=== PATIENT | female | born 1985 | race American Indian/Alaskan Native ===

== ENCOUNTER 2018-09-25 11:29 | Emergency (ER) | payer MEDICAID ==
[2018-09-25] MEDS ORDERED: CATAPRES PO ONE (12:27)
[2018-09-25] MEDS ORDERED: NORCO 5/325 PO ONE (12:27)
--- NOTE | 2018-09-25 12:32 | Emergency Department Report ---
HPI - General Chief Complaint: High BP Time Seen by Provider: 09/25/18 12:17 - HPI HPI: 33-year-old female presents to the emergency department with a complaint of elevated blood pressure and a right-sided headache. Headache started earlier today. She had her blood pressure checked at work and she says that she had a blood pressure with a systolic of about 190. The patient does have a history of some hypertension since having a baby 9 weeks ago and she had preeclampsia. The patient is on nifedipine 30 mg once daily and says that she took it this morning. She denies any slurred speech, numbness or paresthesias, or any neurological deficits. No recent travel or sick contacts at home. ED Past Medical Hx - Past Medical History Previous Medical History?: Yes Hx Hypertension: Yes - Surgical History Past Surgical History?: Yes Additional Surgical History: c section ila urbano - Social History Smoking Status: Never Smoker Substance Use Type: None - Medications Home Medications: Home Medications Medication Instructions Recorded Confirmed Last Taken Type Nitrofurantoin Monohyd/M-Cryst 100 mg PO BID #14 capsule 12/21/17 Unknown Rx [Macrobid 100 mg Capsule] Acetaminophen 500 mg PO Q6H PRN #20 tablet 01/06/18 Unknown Rx Metoclopramide [Reglan] 10 mg PO TID PRN #20 tab 01/06/18 Unknown Rx 21/Iron Fu/Folic Acid 1 each PO DAILY #30 tablet 01/06/18 Unknown Rx [ Complete Caplet] ED Review of Systems ROS: Stated complaint: HIGH BP/HEADACHE ON R SIDE Other details as noted in HPI Comment: All other systems reviewed and negative Constitutional: denies: fever, weakness Eyes: denies: eye pain, eye discharge ENT: denies: ear pain, throat pain Respiratory: denies: cough, shortness of breath Cardiovascular: denies: chest pain, palpitations Gastrointestinal: denies: abdominal pain, vomiting Musculoskeletal: denies: back pain, arthralgia Neurological: headache. denies: weakness, numbness, paresthesias Physical Exam - Physical Exam Vital Signs: Vital Signs 09/25/18 11:34 Temperature 98.1 F Pulse Rate 57 L Respiratory 16 Rate Blood Pressure 176/108 O2 Sat by Pulse 98 Oximetry Physical Exam: GENERAL: The patient is well-developed well-nourished. HENT: Normocephalic. Atraumatic. Patient has moist mucous membranes. EYES: Extraocular motions are intact. Pupils equal reactive to light bilaterally. No nystagmus. NECK: Supple. Trachea is midline. CHEST/LUNGS: Clear to auscultation. There is no respiratory distress noted. HEART/CARDIOVASCULAR: Regular. There is no tachycardia. There is no murmur. ABDOMEN: There is no abdominal distention. SKIN: Skin is warm and dry. NEURO: The patient is awake, alert, and oriented. The patient is cooperative. The patient has no focal neurologic deficits. The patient has normal speech. Cranial nerves II through XII grossly intact. MUSCULOSKELETAL: There is no tenderness or deformity. There is no evidence of acute injury. ED Course Vital Signs 09/25/18 11:34 Temperature 98.1 F Pulse Rate 57 L Respiratory 16 Rate Blood Pressure 176/108 O2 Sat by Pulse 98 Oximetry ED Medical Decision Making - Radiology Data Radiology results: report reviewed CT of the head does not show any acute intracranial process including no ischemia, shift, mass, bleeding or skull fracture. - Medical Decision Making This patient presents to the emergency department with a complaint of a right- sided headache and elevated blood pressure. Apparently the blood pressure was about 190 systolic at work when it was checked. Her blood pressure upon arrival here is 176/108. She has no focal, motor or sensory deficits in her cranial nerves are intact. CT scan of the head was done that does not show any bleed, shift, mass, ischemia, or any other acute process. She was given a pain pill and a low dose Catapres. Upon reevaluation she is feeling improved and her blood pressures come down to a much a normal level. The patient has remained stable throughout ED course and appears safe for discharge home at this time. We discussed dietary and lifestyle changes to make such as decreased salt and caffeine intake. She will continue with her nifedipine and has been instructed to follow-up with primary care. She will keep a blood pressure log. She will return to the ER with any worsening of her symptoms or any acute distress. - Differential Diagnosis tension headache, migraine, subarachnoid Critical Care Time: No Critical care attestation.: If time is entered above; I have spent that time in minutes in the direct care of this critically ill patient, excluding procedure time. ED Disposition Clinical Impression: Headache Qualifiers: Headache type: unspecified Headache chronicity pattern: unspecified pattern Intractability: not intractable Qualified Code(s): R51 - Headache Hypertension Qualifiers: Hypertension type: essential hypertension Qualified Code(s): I10 - Essential (primary) hypertension Disposition: TO HOME OR SELFCARE Is pt being admited?: No Condition: Stable Instructions: Acute Headache (ED), Hypertension (ED) Additional Instructions: Please follow up with a primary care physician in the next few days. Continue with your blood pressure medications starting tomorrow. Try and stay away from foods that are high in salt and caffeinated products to help with your blood pressure. Keep a blood pressure log. Return to the emergency Department with any worsening of your symptoms or any acute distress. Referrals: SALONI ANN DO [Staff Physician] - 2-3 Days [facility] [Outside] - 2-3 Days Forms: Work/School Release Form(ED) Time of Disposition: 14:52
--- NOTE | 2018-09-25 14:06 | Cat Scan Report ---
CT BRAIN: 09/25/2018 INDICATION / CLINICAL INFORMATION: MAIN: Headache HTN . COMPARISON: None available. FINDINGS: BRAIN/INTRACRANIAL STRUCTURES: Unenhanced CT images of the brain demonstrate no evidence of acute int racranial abnormality. Ventricles and sulci are normal in size and shape. There is no evidence of acute ischemic injury, hemorrhage, or mass. There are no abnormal extra-axial fluid collections. EXTRACRANIAL STRUCTURES: Unremarkable. IMPRESSION: Negative unenhanced CT of the brain. All CT scans at this location are performed using dose reduction to ALARA by means of automated expos ure control. Signer Name: Gio Michael MD Signed: 09/25/2018 2:02 PM Workstation Name: [id number]
[2018-09-25 14:50] VITALS: BP 103/73
== END 2018-09-25 14:57 | disposition home or self-care (01) ==
LOC: ED 11:29
DX: R51 Headache (principal); I10 Essential (primary) hypertension; Z79.899 Other long term (current) drug therapy
CPT/HCPCS: 70450

== ENCOUNTER 2018-12-12 00:03 | Emergency (ER) | payer SELFPAY ==
[2018-12-12 01:37] LABS: Hematocrit 38.5 % (30.3-42.9); Hemoglobin 12.3 gm/dl (10.1-14.3); Mean Corpuscular HGB Conc 32 % (30-34); Platelet Count 240 K/mm3 (140-440); Red Blood Count 5.54 M/mm3 (3.65-5.03); Red Cell Distribution Width 16.4 % (13.2-15.2)
[2018-12-12] MEDS ORDERED: CATAPRES PO ONE (01:38)
[2018-12-12 01:46] LABS: BUN/Creatinine Ratio 17; Blood Urea Nitrogen 12 mg/dL (7-17); Calcium 9.3 mg/dL (8.4-10.2); Hemolysis Index 2
[2018-12-12 01:54] LABS: Mean Corpuscular Volume 70 fl (79-97)
[2018-12-12 02:01] LABS: Bacteria,Urine 1+ /HPF (Negative); Bilirubin,Urine NEG (Negative); Blood,Urine LG (Negative); Color,Urine Yellow (Yellow); Mucus,Urine FEW /HPF; Protein,Urine <15 mg/dL mg/dL (Negative); Urobilinogen,Urine < 2.0 mg/dL (<2.0)
--- NOTE | 2018-12-12 02:05 | Emergency Department Report ---
- General Chief Complaint: High BP Stated Complaint: THROAT PAIN/VILLARREAL/COUGH/CHILLS Time Seen by Provider: 12/12/18 01:34 Source: patient Mode of arrival: Ambulatory Limitations: No Limitations - History of Present Illness Initial Comments: 33-year-old female with a past medical history of hypertension presents to have pending a sore throat 4 days. Patient complains of a mild occasional dry cough and chills without documented fever. She complains of intermittent headaches as well. She presents with elevated blood pressure ran out of her blood pressure medication one month ago. She denies blurred vision, focal weakness, chest pain, or shortness of breath. She is 5 months . - Related Data Previous Rx's Medication Instructions Recorded Last Taken Type Nitrofurantoin Monohyd/M-Cryst 100 mg PO BID #14 capsule 12/21/17 Unknown Rx [Macrobid 100 mg Capsule] Acetaminophen 500 mg PO Q6H PRN #20 tablet 01/06/18 Unknown Rx Metoclopramide [Reglan] 10 mg PO TID PRN #20 tab 01/06/18 Unknown Rx 21/Iron Fu/Folic Acid 1 each PO DAILY #30 tablet 01/06/18 Unknown Rx [ Complete Caplet] Benzocaine/Menthol [Cepacol Sore 1 each MM Q2HR PRN #20 lozenge 12/12/18 Unknown Rx Throat Lozenge] NIFEdipine XL [Procardia Xl] 30 mg PO QDAY #30 tablet 12/12/18 Unknown Rx Allergies Allergy/AdvReac Type Severity Reaction Status Date / Time No Known Allergies Allergy Verified 09/25/18 11:31 ED Review of Systems ROS: Stated complaint: THROAT PAIN/VILLARREAL/COUGH/CHILLS Other details as noted in HPI Comment: All other systems reviewed and negative ED Past Medical Hx - Past Medical History Previous Medical History?: Yes Hx Hypertension: Yes Additional medical history: ECLAMPSIA - Surgical History Past Surgical History?: Yes Additional Surgical History: c section tummy tuck - Social History Smoking Status: Never Smoker Substance Use Type: None - Medications Home Medications: Home Medications Medication Instructions Recorded Confirmed Last Taken Type Nitrofurantoin Monohyd/M-Cryst 100 mg PO BID #14 capsule 12/21/17 Unknown Rx [Macrobid 100 mg Capsule] Acetaminophen 500 mg PO Q6H PRN #20 tablet 01/06/18 Unknown Rx Metoclopramide [Reglan] 10 mg PO TID PRN #20 tab 01/06/18 Unknown Rx 21/Iron Fu/Folic Acid 1 each PO DAILY #30 tablet 01/06/18 Unknown Rx [ Complete Caplet] Benzocaine/Menthol [Cepacol Sore 1 each MM Q2HR PRN #20 lozenge 12/12/18 Unkno wn Rx Throat Lozenge] NIFEdipine XL [Procardia Xl] 30 mg PO QDAY #30 tablet 12/12/18 Unknown Rx ED Physical Exam - General Limitations: No Limitations - Other Other exam information: General: No acute distress Head: Atraumatic Eyes: normal appearance ENT: Moist mucous membranes, no exudate, no edema, no tender lymphadenopathy Neck: Normal appearance, no midline tenderness Chest: Clear to auscultation bilaterally CV: Regular rate and rhythm Abdomen: Soft, normal bowel sounds, nontender, nondistended, no rebound or guarding Back: Normal inspection Extremity: Normal inspection infection, full range of motion Neuro: Alert O x 3, no facial asymmetry, speech clear, no gross motor sensory deficit Psych: Appropriate behavior Skin: No rash ED Course Vital Signs 12/12/18 12/12/18 12/12/18 00:08 01:46 01:50 Temperature 98.5 F 98.3 F Pulse Rate 84 67 67 Respiratory 18 18 Rate Blood Pressure 198/135 166/119 Blood Pressure 166/119 [Left] O2 Sat by Pulse 99 100 Oximetry 12/12/18 02:30 Temperature Pulse Rate Respiratory Rate Blood Pressure 157/101 Blood Pressure [Left] O2 Sat by Pulse 100 Oximetry ED Medical Decision Making - Lab Data Result diagrams: 12/12/18 00:45 12/12/18 00:45 Lab Results 12/12/18 12/12/18 12/12/18 Range/Units 00:45 00:45 00:45 WBC 4.7 (4.5-11.0) K/mm3 RBC 5.54 H (3.65-5.03) M/mm3 Hgb 12.3 (10.1-14.3) gm/dl Hct 38.5 (30.3-42.9) % MCV 70 L (79-97) fl MCH 22 L (28-32) pg MCHC 32 (30-34) % RDW 16.4 H (13.2-15.2) % Plt Count 240 (140-440) K/mm3 Lymph % (Auto) Storeroom Keeper Sodium 137 (137-145) mmol/L Potassium 3.8 (3.6-5.0) mmol/L Chloride 100.4 (98-107) mmol/L Carbon Dioxide 25 (22-30) mmol/L Anion Gap 15 mmol/L BUN 12 (7-17) mg/dL Creatinine 0.7 (0.7-1.2) mg/dL Estimated GFR > 60 ml/min BUN/Creatinine Ratio 17 % Glucose 96 (65-100) mg/dL Calcium 9.3 (8.4-10.2) mg/dL Troponin T (0.00-0.029) ng/mL HCG, Qual Negative (Negative) Urine Color (Yellow) Urine Turbidity (Clear) Urine pH (5.0-7.0) Ur Specific [place] (1.003-1.030) Urine Protein (Negative) mg/dL Urine Glucose (UA) (Negative) mg/dL Urine Ketones (Negative) mg/dL Urine Blood (Negative) Urine Nitrite (Negative) Urine Bilirubin (Negative) Urine Urobilinogen (<2.0) mg/dL Ur Leukocyte Esterase (Negative) Urine WBC (Auto) (0.0-6.0) /HPF Urine RBC (Auto) (0.0-6.0) /HPF U Epithel Cells (Auto) (0-13.0) /HPF Urine Bacteria (Auto) (Negative) /HPF Urine Mucus /HPF Group A Strep Rapid (Negative) 12/12/18 12/12/18 12/12/18 Range/Units 00:45 01:40 Unknown WBC (4.5-11.0) K/mm3 RBC (3.65-5.03) M/mm3 Hgb (10.1-14.3) gm/dl Hct (30.3-42.9) % MCV (79-97) fl MCH (28-32) pg MCHC (30-34) % RDW (13.2-15.2) % Plt Count (140-440) K/mm3 Lymph % (Auto) Sodium (137-145) mmol/L Potassium (3.6-5.0) mmol/L Chloride (98-107) mmol/L Carbon Dioxide (22-30) mmol/L Anion Gap mmol/L BUN (7-17) mg/dL Creatinine (0.7-1.2) mg/dL Estimated GFR ml/min BUN/Creatinine Ratio % Glucose (65-100) mg/dL Calcium (8.4-10.2) mg/dL Troponin T < 0.010 (0.00-0.029) ng/mL HCG, Qual (Negative) Urine Color Yellow (Yellow) Urine Turbidity Slightly-cloudy (Clear) Urine pH 6.0 (5.0-7.0) Ur Specific [place] 1.016 (1.003-1.030) Urine Protein <15 mg/dl (Negative) mg/dL Urine Glucose (UA) Neg (Negative) mg/dL Urine Ketones Neg (Negative) mg/dL Urine Blood Lg (Negative) Urine Nitrite Neg (Negative) Urine Bilirubin Neg (Negative) Urine Urobilinogen < 2.0 (<2.0) mg/dL Ur Leukocyte Esterase Neg (Negative) Urine WBC (Auto) 2.0 (0.0-6.0) /HPF Urine RBC (Auto) 5.0 (0.0-6.0) /HPF U Epithel Cells (Auto) 4.0 (0-13.0) /HPF Urine Bacteria (Auto) 1+ (Negative) /HPF Urine Mucus Few /HPF Group A Strep Rapid Negative (Negative) - Radiology Data Radiology results: report reviewed CHEST 2 VIEWS INDICATION / CLINICAL INFORMATION: COUGH. COMPARISON: None available. FINDINGS: SUPPORT DEVICES: None. HEART / MEDIASTINUM: No significant abnormality. LUNGS / PLEURA: No significant pulmonary or pleural abnormality. No pneumothorax. ADDITIONAL FINDINGS: No significant additional findings. IMPRESSION: 1. No acute findings. - Medical Decision Making Patient presents with sore throat and uncontrolled hypertension due to medication noncompliance. No exudates. Strep is negative. No signs of airway swelling or compromise. Patient received clonidine 0.2 mg by mouth. BP improved. No signs of hypertensive emergency. Last known medication was nifedipine 30 mg as per medical record. Refill her medication will be prescribed and outpatient follow-up for further management of blood pressure will be encouraged. [id number] treatment for viral pharyngitis recommended. Critical Care Time: No Critical care attestation.: If time is entered above; I have spent that time in minutes in the direct care of this critically ill patient, excluding procedure time. ED Disposition Clinical Impression: Viral pharyngitis, Uncontrolled hypertension, Noncompliance with medication regimen Disposition: - TO HOME OR SELFCARE Is pt being admited?: No Does the pt Need Aspirin: No Condition: Stable Instructions: Pharyngitis (ED), Hypertension (ED) Additional Instructions: Take the medication as prescribed. Follow-up with your doctor or doctor/clinic provided. Return if symptoms worsen as indicated by your discharge instructions. Prescriptions: Benzocaine/Menthol [Cepacol Sore Throat Lozenge] 1 each MM Q2HR PRN #20 lozenge PRN Reason: Sore Throat NIFEdipine XL [Procardia Xl] 30 mg PO QDAY #30 tablet Referrals: [facility] [Provider Group] - 3-5 Days (Primary care clinic) SALONI ANN DO [Staff Physician] - 3-5 Days (Primary care doctor) Time of Disposition: 03:11
--- NOTE | 2018-12-12 02:37 | XRay Report ---
CHEST 2 VIEWS INDICATION / CLINICAL INFORMATION: COUGH. COMPARISON: None available. FINDINGS: SUPPORT DEVICES: None. HEART / MEDIASTINUM: No significant abnormality. LUNGS / PLEURA: No significant pulmonary or pleural abnormality. No pneumothorax. ADDITIONAL FINDINGS: No significant additional findings. IMPRESSION: 1. No acute findings. Signer Name: Clifford Hankins MD Signed: 12/12/2018 2:33 AM Workstation Name: [id number]
[2018-12-12 03:07] VITALS: BP 138/102
[2018-12-12 06:19] LABS: Basophils % (Manual) 0 % (0.0-1.8); Total Cells Counted 100
[2018-12-12 06:20] LABS: Anisocytosis 1+; Hypochromasia 1+; Platelet Estimate Consistent w Auto
== END 2018-12-12 04:00 | disposition home or self-care (01) ==
LOC: ED 00:03
DX: J02.8 Acute pharyngitis due to other specified organisms (principal); B97.89 Other viral agents as the cause of diseases classified elsewhere; I10 Essential (primary) hypertension; Z91.14 Patient's other noncompliance with medication regimen
CPT/HCPCS: 36415; 71046; 80048; 81001; 84484; 84703; 85007; 85025; 87116; 87430; 93005; 93010

== ENCOUNTER 2019-02-12 09:53 | Emergency (ER) | payer SELFPAY ==
[2019-02-12] MEDS ORDERED: cloNIDine 0.2 MG TAB ONE (10:11)
[2019-02-12] MEDS ORDERED: cloNIDine 0.2 MG TAB PO ONE (10:12)
--- NOTE | 2019-02-12 11:52 | Cat Scan Report ---
CT HEAD WITHOUT CONTRAST INDICATION : Headache. TECHNIQUE: Axial imaging performed from the skull apex through the skull base without the use of con trast. All CT scans at this location are performed using CT dose reduction for ALARA by means of aut omated exposure control. COMPARISON: 09/25/2018 FINDINGS: Parenchyma: No acute intracranial hemorrhage or parenchymal abnormality. Ventricles: Ventricles are normal in size and appear symmetric. Soft tissues: Soft tissues including the orbits appear normal. Bones: No acute osseous abnormality. Sinuses: Sinuses and mastoid air cells are clear. IMPRESSION: No acute abnormality. Signer Name: Esdras Paz MD Signed: 02/12/2019 11:48 AM Workstation Name: [id number]
--- NOTE | 2019-02-12 15:21 | Emergency Department Report ---
HPI - General Chief Complaint: Eye Problems Time Seen by Provider: 02/12/19 15:07 - HPI HPI: Room 44 The patient is a 33-year-old female presenting with chief complaint of hypertension. Patient states she felt as though her blood pressures elevated this morning she developed a headache and blurred vision. Patient states she checked her blood pressure initially was 167/135 but just prior to coming to the ED was measured at 190/135. The patient states she's been out of her Procardia for 2.5 weeks. Patient was given clonidine prior to my evaluation her blood pressures improved. Patient states she now feels okay just tired. Location: [See above] Duration: [See above] Quality: [See above] Severity: [See above] Timing: [See above] Context: [See above] Modifying factors: [See above] Associated signs and symptoms: [see above] ED Past Medical Hx - Past Medical History Previous Medical History?: Yes Hx Hypertension: Yes Additional medical history: ECLAMPSIA - Surgical History Past Surgical History?: Yes Additional Surgical History: c section tummy tuck - Family History Family history: no significant - Social History Smoking Status: Former Smoker (none 4 years) Substance Use Type: None (denies illicit drug use) - Medications Home Medications: Home Medications Medication Instructions Recorded Confirmed Last Taken Type Nitrofurantoin Monohyd/M-Cryst 100 mg PO BID #14 capsule 12/21/17 Unknown Rx [Macrobid 100 mg Capsule] Acetaminophen 500 mg PO Q6H PRN #20 tablet 01/06/18 Unknown Rx Metoclopramide [Reglan] 10 mg PO TID PRN #20 tab 01/06/18 Unknown Rx 21/Iron Fu/Folic Acid 1 each PO DAILY #30 tablet 01/06/18 Unknown Rx [ Complete Caplet] Benzocaine/Menthol [Cepacol Sore 1 each MM Q2HR PRN #20 lozenge 12/12/18 Unknown Rx Throat Lozenge] NIFEdipine XL [Procardia Xl] 30 mg PO QDAY #90 tablet 02/12/19 Unknown Rx ED Review of Systems ROS: Stated complaint: HEADACHE/SPOTS IN EYES/SHAKES Other details as noted in HPI Constitutional: no symptoms reported Eyes: vision change ENT: denies: throat pain Respiratory: no symptoms reported Cardiovascular: denies: chest pain Endocrine: no symptoms reported Gastrointestinal: denies: abdominal pain Genitourinary: denies: dysuria Musculoskeletal: denies: back pain Neurological: headache Physical Exam - Physical Exam Vital Signs: Vital Signs 02/12/19 02/12/19 10:03 10:55 Temperature 98.7 F Pulse Rate 76 64 Respiratory 16 Rate Blood Pressure 208/131 Blood Pressure 162/116 [Left] O2 Sat by Pulse 94 Oximetry Physical Exam: GENERAL: The patient is well-developed well-nourished female sitting in chair not appearing to be in acute distress. [] HEENT: Normocephalic. Atraumatic. Extraocular motions are intact. Patient has moist mucous membranes. NECK: Supple. Trachea midline CHEST/LUNGS: Clear to auscultation. There is no respiratory distress noted. HEART/CARDIOVASCULAR: Regular. There is no tachycardia. There is no gallop rub or murmur. ABDOMEN: Abdomen is soft, nontender. Patient has normal bowel sounds. There is no abdominal distention. SKIN: There is no rash. There is no edema. There is no diaphoresis. NEURO: The patient is awake, alert, and oriented. The patient is cooperative. The patient has no focal neurologic deficits. The patient has normal speech. Cranial nerves II through XII grossly intact, no drift MUSCULOSKELETAL: There is no evidence of acute injury. ED Course Vital Signs 02/12/19 02/12/19 10:03 10:55 Temperature 98.7 F Pulse Rate 76 64 Respiratory 16 Rate Blood Pressure 208/131 Blood Pressure 162/116 [Left] O2 Sat by Pulse 94 Oximetry ED Medical Decision Making - Radiology Data Radiology results: report reviewed (CT head), image reviewed (CT head) [facility] [address] [place] [address] Cat Scan Report Signed Patient: LEANNA ALLAN MR#: [id number] : 1985 Acct:[id number] Age/Sex: 33 / F ADM Date: 02/12/19 Loc: ED Attending Dr: Ordering Physician: LAURA SHAVER MD Date of Service: 02/12/19 Procedure(s): CT head/brain wo con Accession Number(s): [id number] cc: LAURA SHAVER MD CT HEAD WITHOUT CONTRAST INDICATION : Headache. TECHNIQUE: Axial imaging performed from the skull apex through the skull base without the use of contrast. All CT scans at this location are performed using CT dose reduction for ALARA by means of automated exposure control. COMPARISON: 09/25/2018 FINDINGS: Parenchyma: No acute intracranial hemorrhage or parenchymal abnormality. Ventricles: Ventricles are normal in size and appear symmetric. Soft tissues: Soft tissues including the orbits appear normal. Bones: No acute osseous abnormality. Sinuses: Sinuses and mastoid air cells are clear. IMPRESSION: No acute abnormality. Signer Name: Esdras Sharp MD Signed: 02/12/2019 11:48 AM Workstation Name: [id number] Transcribed By: REF Dictated By: ESDRAS SHARP MD Electronically Authenticated By: ESDRAS SHARP MD Signed Date/Time: 02/12/19 1148 DD/ 1144 TD/TT: - Differential Diagnosis hypertensive urgency, intracranial hemorrhage, Critical care attestation.: If time is entered above; I have spent that time in minutes in the direct care of this critically ill patient, excluding procedure time. ED Disposition Clinical Impression: Hypertensive urgency, Headache Disposition: DC-01 TO HOME OR SELFCARE Is pt being admited?: No Does the pt Need Aspirin: No Condition: Stable Instructions: Hypertensive Crisis (ED), Hypertension (ED) Additional Instructions: Return to the emergency department should you develop worsening symptoms, inability to tolerate food or liquids, high fever or any other concerns Prescriptions: NIFEdipine XL [Procardia Xl] 30 mg PO QDAY #90 tablet Referrals: PRIMARY CAREMD [Primary Care Provider] - 3-5 Days Time of Disposition: 15:20
[2019-02-12 15:31] VITALS: BP 138/97
== END 2019-02-12 15:29 | disposition home or self-care (01) ==
LOC: ED 09:53
DX: I16.0 Hypertensive urgency (principal); Z98.890 Other specified postprocedural states; Z87.891 Personal history of nicotine dependence; Z79.899 Other long term (current) drug therapy
CPT/HCPCS: 70450

== ENCOUNTER 2019-06-29 17:19 | Emergency (ER) | payer MEDICAID ==
--- NOTE | 2019-06-29 20:07 | Emergency Department Report ---
ED General Adult HPI - General Chief complaint: High BP Stated complaint: BP HIGH,STOMACH PAIN, EYE PAIN PUI?: No Time Seen by Provider: 06/29/19 19:42 Source: patient Mode of arrival: Ambulatory Limitations: No Limitations - History of Present Illness Initial comments: This is a 33-year-old female who presents the ED complaining of throbbing headache due to elevated blood pressure. Patient states she was diagnosed about a year ago with hypertension because she had preeclampsia during her first . Patient states that she has been on nifedipine since then that has been working for her. Patient states that she has not been on her blood pressure medication for about a month because she has been out of medication. Patient states she just got her Medicaid approved which is why she was not able to get her medication filled. Patient denies fever/chills/nausea vomiting/chest pain/shortness of breath. Patient stated that she took Motrin which helped a little for the headache but her blood pressure is not resolving. - Related Data Previous Rx's Medication Instructions Recorded Last Taken Type Nitrofurantoin Monohyd/M-Cryst 100 mg PO BID #14 capsule 12/21/17 Unknown Rx [Macrobid 100 mg Capsule] Acetaminophen 500 mg PO Q6H PRN #20 tablet 01/06/18 Unknown Rx Metoclopramide [Reglan] 10 mg PO TID PRN #20 tab 01/06/18 Unknown Rx 21/Iron Fu/Folic Acid 1 each PO DAILY #30 tablet 01/06/18 Unknown Rx [ Complete Caplet] Benzocaine/Menthol [Cepacol Sore 1 each MM Q2HR PRN #20 lozenge 12/12/18 Unknown Rx Throat Lozenge] NIFEdipine XL [Procardia Xl] 30 mg PO QDAY #90 tablet 06/29/19 Unknown Rx Allergies Allergy/AdvReac Type Severity Reaction Status Date / Time No Known Allergies Allergy Verified 09/25/18 11:31 ED Review of Systems ROS: Stated complaint: BP HIGH,STOMACH PAIN, EYE PAIN Other details as noted in HPI Comment: All other systems reviewed and negative ED Past Medical Hx - Past Medical History Previous Medical History?: Yes Hx Hypertension: Yes Additional medical history: ECLAMPSIA - Surgical History Past Surgical History?: Yes Additional Surgical History: c section tummy tuck - Social History Smoking Status: Never Smoker Substance Use Type: None - Medications Home Medications: Home Medications Medication Instructions Recorded Confirmed Last Taken Type Nitrofurantoin Monohyd/M-Cryst 100 mg PO BID #14 capsule 12/21/17 Unknown Rx [Macrobid 100 mg Capsule] Acetaminophen 500 mg PO Q6H PRN #20 tablet 01/06/18 Unknown Rx Metoclopramide [Reglan] 10 mg PO TID PRN #20 tab 01/06/18 Unknown Rx 21/Iron Fu/Folic Acid 1 each PO DAILY #30 tablet 01/06/18 Unknown Rx [ Complete Caplet] Benzocaine/Menthol [Cepacol Sore 1 each MM Q2HR PRN #20 lozenge 12/12/18 Unknown Rx Throat Lozenge] NIFEdipine XL [Procardia Xl] 30 mg PO QDAY #90 tablet 06/29/19 Unknown Rx ED Physical Exam - General Limitations: No Limitations General appearance: alert, in no apparent distress - Head Head exam: Present: atraumatic, normocephalic - Eye Eye exam: Present: normal appearance, PERRL. Absent: conjunctival injection, nystagmus, periorbital swelling Pupils: Present: normal accommodation - ENT ENT exam: Present: mucous membranes moist - Neck Neck exam: Present: normal inspection - Respiratory Respiratory exam: Present: normal lung sounds bilaterally. Absent: respiratory distress, wheezes, chest wall tenderness - Cardiovascular Cardiovascular Exam: Present: regular rate, normal rhythm. Absent: systolic murmur, diastolic murmur, rubs, gallop - GI/Abdominal GI/Abdominal exam: Present: soft, normal bowel sounds. Absent: distended, tenderness - Extremities Exam Extremities exam: Present: normal inspection - Neurological Exam Neurological exam: Present: alert, oriented X3, normal gait - Psychiatric Psychiatric exam: Present: normal affect, normal mood - Skin Skin exam: Present: intact, normal color. Absent: rash ED Course Vital Signs 06/29/19 06/29/19 17:31 20:31 Temperature 98.0 F Pulse Rate 62 74 Respiratory 20 Rate Blood Pressure 184/125 191/118 O2 Sat by Pulse 100 Oximetry ED Medical Decision Making - Lab Data Result diagrams: 06/29/19 20:08 06/29/19 20:08 Laboratory Last Values WBC 5.3 K/mm3 (4.5-11.0) 06/29/19 20:08 RBC 5.61 M/mm3 (3.65-5.03) H 06/29/19 20:08 Hgb 12.8 gm/dl (10.1-14.3) 06/29/19 20:08 Hct 39.5 % (30.3-42.9) 06/29/19 20:08 MCV 70 fl (79-97) L 06/29/19 20:08 MCH 23 pg (28-32) L 06/29/19 20:08 MCHC 32 % (30-34) 06/29/19 20:08 RDW 15.9 % (13.2-15.2) H 06/29/19 20:08 Plt Count 258 K/mm3 (140-440) 06/29/19 20:08 Lymph % (Auto) 39.0 % (13.4-35.0) H 06/29/19 20:08 [place] % (Auto) 8.5 % (0.0-7.3) H 06/29/19 20:08 Eos % (Auto) 0.7 % (0.0-4.3) 06/29/19 20: Baso % (Auto) 0.7 % (0.0-1.8) 06/29/19 20: Lymph # 2.1 K/mm3 (1.2-5.4) 06/29/19 20: [place] # 0.5 K/mm3 (0.0-0.8) 06/29/19 20: Eos # 0.0 K/mm3 (0.0-0.4) 06/29/19 20: Baso # 0.0 K/mm3 (0.0-0.1) 06/29/19 20: Seg Neutrophils % 51.1 % (40.0-70.0) 06/29/19 20: Seg Neutrophils # 2.7 K/mm3 (1.8-7.7) 06/29/19 20:08 Sodium 139 mmol/L (137-145) 06/29/19 20:08 Potassium 4.0 mmol/L (3.6-5.0) 06/29/19 20:08 Chloride 102.9 mmol/L (98-107) 06/29/19 20:08 Carbon Dioxide 26 mmol/L (22-30) 06/29/19 20:08 Anion Gap 14 mmol/L 06/29/19 20:08 BUN 9 mg/dL (7-17) 06/29/19 20:08 Creatinine 0.7 mg/dL (0.7-1.2) 06/29/19 20:08 Estimated GFR > 60 ml/min 06/29/19 20:08 BUN/Creatinine Ratio 13 % 06/29/19 20:08 Glucose 103 mg/dL (65-100) H 06/29/19 20:08 Calcium 9.9 mg/dL (8.4-10.2) 06/29/19 20:08 Troponin T < 0.010 ng/mL (0.00-0.029) 06/29/19 20:08 HCG, Quant < 2 mIU/mL (0-4) 06/29/19 20:08 Vital Signs 06/29/19 06/29/19 06/29/19 17:31 20:31 21:44 Temperature 98.0 F 98.4 F Pulse Rate 62 74 57 L Respiratory 20 16 Rate Blood Pressure 184/125 191/118 150/92 O2 Sat by Pulse 100 99 Oximetry Critical care attestation.: If time is entered above; I have spent that time in minutes in the direct care of this critically ill patient, excluding procedure time. ED Disposition Clinical Impression: Uncontrolled hypertension Disposition: DC-01 TO HOME OR SELFCARE Is pt being admited?: No Does the pt Need Aspirin: No Condition: Stable Instructions: Hypertension (ED) Additional Instructions: Make sure to follow up with the primary care physician as discussed. Take your medications as you've been prescribed. All your labs today were negative. Which means all your lab today was normal If you have any worsening symptoms or develop new symptoms please return to ED immediately. Prescriptions: NIFEdipine XL [Procardia Xl] 30 mg PO QDAY #90 tablet Referrals: Asa CROFT [Other] - 3-5 Days Forms: Work/School Release Form(ED) Time of Disposition: 22:13
[2019-06-29] MEDS ORDERED: ONDANSETRON 4 MG ODT TAB PO ONE (20:16)
[2019-06-29] MEDS ORDERED: FAMOTIDINE 20 MG TAB PO ONE (20:16)
[2019-06-29] MEDS ORDERED: cloNIDine 0.2 MG TAB PO ONE (20:16)
[2019-06-29 20:22] LABS: Basophils % (Auto) 0.7 % (0.0-1.8); Eosinophils % (Auto) 0.7 % (0.0-4.3); Hematocrit 39.5 % (30.3-42.9); Hemoglobin 12.8 gm/dl (10.1-14.3); Lymphocytes # (Auto) 2.1 K/mm3 (1.2-5.4); Mean Corpuscular HGB Conc 32 % (30-34); Mean Corpuscular Volume 70 fl (79-97); Monocytes # (Auto) 0.5 K/mm3 (0.0-0.8); Monocytes % (Auto) 8.5 % (0.0-7.3); Platelet Count 258 K/mm3 (140-440); Red Blood Count 5.61 M/mm3 (3.65-5.03); Red Cell Distribution Width 15.9 % (13.2-15.2)
[2019-06-29 20:44] LABS: BUN/Creatinine Ratio 13; Blood Urea Nitrogen 9 mg/dL (7-17); Calcium 9.9 mg/dL (8.4-10.2); Hemolysis Index 8
[2019-06-30 13:34] VITALS: BP 150/92
== END 2019-06-29 22:29 | disposition home or self-care (01) ==
LOC: ED 17:19
DX: I10 Essential (primary) hypertension (principal); Z79.899 Other long term (current) drug therapy; Z98.890 Other specified postprocedural states
CPT/HCPCS: 36415; 80048; 84484; 84702; 85025; 99283; Q0162

== ENCOUNTER 2019-07-11 18:47 | Emergency (ER) | payer MEDICAID ==
--- NOTE | 2019-07-11 20:01 | Emergency Department Report ---
ED Neck Pain/Injury HPI - General Chief Complaint: Extremity Problem,Nontraumatic Stated Complaint: LFT SIDE NECK PAIN/LFT ARM NUMB Time Seen by Provider: 07/11/19 19:48 Mode of arrival: Ambulatory Limitations: No Limitations - History of Present Illness MD Complaint: neck pain -: year(s) (4 ago with an acute flareup today reports neck pain radiating to the left side associated with numbness and tingling to her fingers) Place: home Radiation: left lateral Severity: mild, moderate Quality: dull Consistency: constant Improves With: none Worsens With: movement of neck Context: other (Previous injury) Associated Symptoms: tingling Treatments Prior to Arrival: none - Related Data Previous Rx's Medication Instructions Recorded Last Taken Type Nitrofurantoin Monohyd/M-Cryst 100 mg PO BID #14 capsule 12/21/17 Unknown Rx [Macrobid 100 mg Capsule] Acetaminophen 500 mg PO Q6H PRN #20 tablet 01/06/18 Unknown Rx Metoclopramide [Reglan] 10 mg PO TID PRN #20 tab 01/06/18 Unknown Rx 21/Iron Fu/Folic Acid 1 each PO DAILY #30 tablet 01/06/18 Unknown Rx [ Complete Caplet] Benzocaine/Menthol [Cepacol Sore 1 each MM Q2HR PRN #20 lozenge 12/12/18 Unknown Rx Throat Lozenge] NIFEdipine XL [Procardia Xl] 30 mg PO QDAY #90 tablet 06/29/19 Unknown Rx Ketorolac [Toradol] 10 mg PO Q6H PRN #10 tablet 07/11/19 Unknown Rx methOCARBAMOL [Robaxin TAB] 750 mg PO Q8H PRN #14 tablet 07/11/19 Unknown Rx Allergies Allergy/AdvReac Type Severity Reaction Status Date / Time No Known Allergies Allergy Verified 09/25/18 11:31 ED Review of Systems ROS: Stated complaint: LFT SIDE NECK PAIN/LFT ARM NUMB Other details as noted in HPI Comment: All other systems reviewed and negative ED Past Medical Hx - Past Medical History Previous Medical History?: Yes Hx Hypertension: Yes Additional medical history: ECLAMPSIA - Surgical History Past Surgical History?: Yes Additional Surgical History: c section tummy tuck - Social History Smoking Status: Current Some Day Smoker Substance Use Type: Alcohol, Marijuana - Medications Home Medications: Home Medications Medication Instructions Recorded Confirmed Last Taken Type Nitrofurantoin Monohyd/M-Cryst 100 mg PO BID #14 capsule 12/21/17 Unknown Rx [Macrobid 100 mg Capsule] Acetaminophen 500 mg PO Q6H PRN #20 tablet 01/06/18 Unknown Rx Metoclopramide [Reglan] 10 mg PO TID PRN #20 tab 01/06/18 Unknown Rx 21/Iron Fu/Folic Acid 1 each PO DAILY #30 tablet 01/06/18 Unknown Rx [ Complete Caplet] Benzocaine/Menthol [Cepacol Sore 1 each MM Q2HR PRN #20 lozenge 12/12/18 Unknown Rx Throat Lozenge] NIFEdipine XL [Procardia Xl] 30 mg PO QDAY #90 tablet 06/29/19 Unknown Rx Ketorolac [Toradol] 10 mg PO Q6H PRN #10 tablet 07/11/19 Unknown Rx methOCARBAMOL [Robaxin TAB] 750 mg PO Q8H PRN #14 tablet 07/11/19 Unknown Rx ED Physical Exam - General Limitations: No Limitations General appearance: alert, in no apparent distress - Head Head exam: Present: atraumatic, normocephalic - Eye Eye exam: Present: normal appearance - Neck Neck exam: Present: tenderness, other (spasm to left trapezius) - Respiratory Respiratory exam: Present: normal lung sounds bilaterally - Cardiovascular Cardiovascular Exam: Present: regular rate ED Course Vital Signs 07/11/19 18:49 Temperature 98 F Pulse Rate 81 Respiratory 20 Rate Blood Pressure 145/104 O2 Sat by Pulse 96 Oximetry Critical care attestation.: If time is entered above; I have spent that time in minutes in the direct care of this critically ill patient, excluding procedure time. ED Disposition Clinical Impression: Cervical muscle strain, Spasm, Cervical radicular pain Disposition: DC-01 TO HOME OR SELFCARE Is pt being admited?: No Does the pt Need Aspirin: No Condition: Stable Instructions: Muscle Strain (ED), Cervical Radiculopathy (ED) Prescriptions: methOCARBAMOL [Robaxin TAB] 750 mg PO Q8H PRN #14 tablet PRN Reason: Pain, Moderate (4-6) Ketorolac [Toradol] 10 mg PO Q6H PRN #10 tablet PRN Reason: Pain Referrals: MARIA OLIVO MD [Staff Physician] - 3-5 Days
[2019-07-11 20:57] VITALS: BP 155/95
== END 2019-07-11 20:57 | disposition home or self-care (01) ==
LOC: ED 18:47
DX: S16.1XXA Strain of muscle, fascia and tendon at neck level, initial encounter (principal); M54.12 Radiculopathy, cervical region; R25.2 Cramp and spasm; I10 Essential (primary) hypertension; F17.200 Nicotine dependence, unspecified, uncomplicated; F12.90 Cannabis use, unspecified, uncomplicated; Z79.899 Other long term (current) drug therapy; Z98.890 Other specified postprocedural states; X58.XXXA Exposure to other specified factors, initial encounter; Y93.89 Activity, other specified; Y92.89 Other specified places as the place of occurrence of the external cause; Y99.8 Other external cause status
CPT/HCPCS: 99282

== ENCOUNTER 2021-04-06 11:43 | Emergency (ER) | payer MEDICAID ==
[2021-04-06 11:45] VITALS: BP 129/94
[2021-04-06] MEDS ORDERED: TETRACAINE 0.5% OPHTH SOLN 4ML OU ONE (12:23)
[2021-04-06] MEDS ORDERED: FLUORESCEIN 1 MG STRIP OP ONE (12:23)
[2021-04-06] MEDS ORDERED: IBUPROFEN 600 MG TAB PO ONE (12:24)
[2021-04-06] MEDS ORDERED: ERYTHROMYCIN 5 MG/1 GM OPHTH OINT OU ONE (13:00)
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
[2021-04-06] MEDS: CYCLOBENZAPRINE 10 MG TAB PO ONE ×2 (14:10→14:17)
== END 2021-04-06 14:22 | disposition home or self-care (01) ==
LOC: ED 11:43
DX: T14.8XXA Other injury of unspecified body region, initial encounter (principal); H11.32 Conjunctival hemorrhage, left eye; I10 Essential (primary) hypertension; Z98.890 Other specified postprocedural states; F17.200 Nicotine dependence, unspecified, uncomplicated; Y08.89XA Assault by other specified means, initial encounter; Y93.89 Activity, other specified; Y92.89 Other specified places as the place of occurrence of the external cause; Y99.8 Other external cause status
CPT/HCPCS: 70450; 70486; 72125; 99284

== ENCOUNTER 2021-09-07 12:37 | Emergency (ER) | payer MEDICAID ==
--- NOTE | 2021-09-07 14:17 | Emergency Department Report ---
Blank Doc - Documentation Documentation: 36-year-old female who presents with abdominal pain and nausea. 1- This is a initial triage assessment/medical screening only. Full assessment and work-up will be completed once the patient is in proper hospital gown, ED bed and in a private room setting. This initial assessment/diagnostic orders/clinical plan/ treatment(s) is/are subject to change based on pt's health status, clinical progression and re-assessment by fellow clinical providers in the ED. Further treatment and workup at subsequent clinical providers discretion. Patient/guardians urged not to elope from ED as their condition may be serious if not clinically assessed and managed. 2-labs 3-UA The patient was evaluated in the emergency department for symptoms described in the history of present illness. He/she was evaluated in the context of the global COVID-19 pandemic, which necessitated consideration that the patient might be at risk for infection with the virus that causes COVID-19. Institutional protocols and algorithms that pertain to the evaluation of patients at risk for COVID-19 are in a state of rapid change based on information released by regulatory bodies including the CDC and federal and state organizations. These policies and algorithms were followed during the patient's care in the emergency department. Please note that these policies, procedures and recommendations changed on a rapid basis.
[2021-09-07 15:01] LABS: Basophils # (Auto) 0.1 K/mm3 (0.0-0.1); Basophils % (Auto) 2.4 % (0.0-1.8); Eosinophils % (Auto) 0.8 % (0.0-4.3); Hematocrit 40.8 % (30.3-42.9); Hemoglobin 12.9 gm/dl (10.1-14.3); Lymphocytes % (Auto) 37.6 % (13.4-35.0); Mean Corpuscular HGB Conc 32 % (30-34); Mean Corpuscular Volume 72 fl (79-97); Monocytes # (Auto) 0.4 K/mm3 (0.0-0.8); Monocytes % (Auto) 7.5 % (0.0-7.3); Platelet Count 300 K/mm3 (140-440); Red Blood Count 5.65 M/mm3 (3.65-5.03); Red Cell Distribution Width 15.2 % (13.2-15.2)
[2021-09-07 15:04] LABS: Alanine Aminotransferase 16 units/L (7-56); Albumin 5.2 g/dL (3.9-5); Blood Urea Nitrogen 10 mg/dL (7-17); Calcium 10.3 mg/dL (8.4-10.2); Hemolysis Index 2
[2021-09-07 15:14] LABS: BUN/Creatinine Ratio 14
[2021-09-07] MEDS ORDERED: amLODIPine 5 MG TAB PO ONE (21:33)
[2021-09-07] MEDS ORDERED: ALUM-MAG HYDROXIDE-SIMETHICONE 200-200-20MG/5ML ORAL LIQD 30 ML PO ONE (21:33)
[2021-09-07] MEDS ORDERED: LIDOCAINE VISCOUS 2% 15 ML ORAL LIQD PO ONE (21:33)
[2021-09-07 22:00] LABS: INR 0.97 (0.87-1.13); Partial Thromboplastin Time 27.1 Sec. (24.2-36.6)
[2021-09-07 22:25] VITALS: BP 130/85
[2021-09-07 22:32] LABS: Bilirubin,Urine Negative (Negative); Color,Urine Yellow (Yellow)
[2021-09-07 22:33] LABS: Blood,Urine Large (Negative); Protein,Urine <30 mg dL mg/dL (Negative); Urobilinogen,Urine 0.2 mg/dL (<2.0)
[2021-09-07 22:35] LABS: Bacteria,Urine 1+ /HPF (Negative); Mucus,Urine 3+ /HPF
[2021-09-07 22:43] LABS: Amphetamine Screen,Urine Negative; Benzodiazepines Screen,Urine Negative; Cocaine Screen,Urine Negative; Methadone Screen,Urine Negative; Opiate Screen,Urine Negative
[2021-09-07] MEDS ORDERED: cefTRIAXone/NS 1 GM/50 ML 1 GM/50 ML BAG IV ONE (22:58)
[2021-09-07] MEDS ORDERED: KETOROLAC 30 MG/1 ML INJ IV ONE (22:58)
[2021-09-07] MEDS ORDERED: ONDANSETRON 4 MG/2 ML INJ IV ONE (22:58)
[2021-09-07] MEDS ORDERED: SODIUM CHLORIDE 0.9% 1000 ML 1,000 ML IV ONE (22:58)
[2021-09-07 22:59] LABS: Cannabinoid Screen,Urine Positive
--- NOTE | 2021-09-07 23:04 | Emergency Department Report ---
ED Abdominal Pain HPI - General Chief Complaint: Abdominal Pain Stated Complaint: ABDOMINAL PAIN/CHEST HURT Time Seen by Provider: 09/07/21 12:43 Source: patient Mode of arrival: Ambulatory Limitations: No Limitations - History of Present Illness Initial Comments: 36-year-old female who presents for abdominal pain radiating to right upper shoulder and chest. Patient states pain is exacerbated by movement and deep inspiration. Patient denies fevers or chills. Patient does endorse nausea. Some urinary frequency. Last menstrual cycle 2 weeks ago. Patient denies history of renal stones no history of gallstones. Symptoms are exacerbated symptoms of anxiety. Patient rates symptoms at 4/10 at this time. MD Complaint: abdominal pain, flank pain - Related Data Previous Rx's Medication Instructions Recorded Last Taken Type RX: Polymyxin B Sulf/Trimethoprim 2 drops OS 14 #1 bottle 04/06/21 Unknown Rx [Polytrim Eye Drops] RX: Ibuprofen [Motrin 800 MG tab] 800 mg PO Q8HR PRN #30 tablet 09/08/21 Unknown Rx cephALEXin [Keflex] 500 mg PO BID 7 Days #14 cap 09/08/21 Unknown Rx Allergies Allergy/AdvReac Type Severity Reaction Status Date / Time No Known Allergies Allergy Verified 04/06/21 11:45 ED Review of Systems ROS: Stated complaint: ABDOMINAL PAIN/CHEST HURT Other details as noted in HPI Constitutional: malaise. denies: chills, fever Eyes: denies: eye pain, eye discharge, vision change ENT: denies: ear pain, throat pain Respiratory: denies: cough, shortness of breath, wheezing Cardiovascular: chest pain. denies: palpitations (Epigastric), orthopnea Endocrine: no symptoms reported Gastrointestinal: abdominal pain, nausea, vomiting. denies: diarrhea, constipation, melena Genitourinary: urgency. denies: dysuria, frequency, hematuria, discharge Musculoskeletal: back pain Skin: denies: rash, lesions Neurological: headache. denies: weakness, numbness, paresthesias, confusion, vertigo Psychiatric: denies: anxiety, depression Hematological/Lymphatic: denies: easy bleeding, easy bruising ED Past Medical Hx - Past Medical History Hx Hypertension: Yes Additional medical history: ECLAMPSIA - Surgical History Additional Surgical History: c section tummy tuck - Social History Smoking Status: Never Smoker Substance Use Type: Marijuana - Medications Home Medications: Home Medications Medication Instructions Recorded Confirmed Last Taken Type RX: Polymyxin B Sulf/Trimethoprim 2 drops OS 14 #1 bottle 04/06/21 Unknown Rx [Polytrim Eye Drops] RX: Ibuprofen [Motrin 800 MG tab] 800 mg PO Q8HR PRN #30 tablet 09/08/21 Unknown Rx cephALEXin [Keflex] 500 mg PO BID 7 Days #14 cap 09/08/21 Unknown Rx ED Physical Exam - General Limitations: No Limitations General appearance: alert, in no apparent distress - Head Head exam: Present: normocephalic, normal inspection - Eye Eye exam: Present: PERRL, EOMI. Absent: conjunctival injection, nystagmus Pupils: Present: normal accommodation - ENT ENT exam: Present: mucous membranes moist - Neck Neck exam: Present: normal inspection, full ROM. Absent: tenderness, men ingismus, lymphadenopathy, thyromegaly - Respiratory Respiratory exam: Present: normal lung sounds bilaterally, chest wall tenderness (Anterior wall tenderness to deep palpation no crepitus ecchymosis or swelling. Lung sounds are clear throughout.). Absent: respiratory distress, wheezes, rales, rhonchi, stridor, prolonged expiratory - Cardiovascular Cardiovascular Exam: Present: regular rate, normal rhythm, normal heart sounds. Absent: systolic murmur, diastolic murmur, rubs, gallop - GI/Abdominal GI/Abdominal exam: Present: soft, tenderness (Bilateral flank and anterior chest wall no crepitus no step-off no ecchymosis), normal bowel sounds. Absent: guarding, rebound, rigid, hernia - Rectal Rectal exam: Present: deferred - Extremities Exam Extremities exam: Present: normal inspection, full ROM, normal capillary refill. Absent: tenderness, pedal edema - Back Exam Back exam: Present: normal inspection, full ROM, CVA tenderness (R), CVA tenderness (L) - Neurological Exam Neurological exam: Present: alert, oriented X3, CN II-XII intact, normal gait - Expanded Neurological Exam Expanded Patient oriented to: Present: person, place, time Speech: Present: fluid speech Motor strength exam: RUE: 5, LUE: 5, RLE: 5, LLE: 5 Best Eye Response (Sharita): (4) open spontaneously Best Motor Response (Sharita): (6) obeys commands Best Verbal Response (Buckhorn): (5) oriented Sharita Total: 15 - Psychiatric Psychiatric exam: Present: normal affect, normal mood, anxious - Skin Skin exam: Present: warm, dry, intact, normal color. Absent: rash ED Course Vital Signs 09/07/21 09/07/21 09/07/21 12:43 19:16 22:25 Temperature 99.1 F 98.9 F Pulse Rate 61 98 H 74 Respiratory 17 18 14 Rate Blood Pressure 158/107 Blood Pressure 113/89 130/85 [Right] O2 Sat by Pulse 99 100 100 Oximetry 09/07/21 22:34 Temperature Pulse Rate 74 Respiratory Rate Blood Pressure 130/85 Blood Pressure [Right] O2 Sat by Pulse Oximetry ED Medical Decision Making - Lab Data Result diagrams: 09/07/21 14:22 09/07/21 14:22 Labs 09/07/21 09/07/21 09/07/21 14:22 14:22 14:22 WBC 5.4 RBC 5.65 H Hgb 12.9 Hct 40.8 MCV 72 L MCH 23 L MCHC 32 RDW 15.2 Plt Count 300 Lymph % (Auto) 37.6 H Norman % (Auto) 7.5 H Eos % (Auto) 0.8 Baso % (Auto) 2.4 H Lymph # (Auto) 2.0 Norman # (Auto) 0.4 Eos # (Auto) 0.0 Baso # (Auto) 0.1 Seg Neutrophils % 51.7 Seg Neutrophils # 2.8 PT INR APTT D-Dimer Sodium 139 Potassium 3.3 L Chloride 98.2 Carbon Dioxide 29 Anion Gap 15 BUN 10 Creatinine 0.7 Estimated GFR > 60 BUN/Creatinine Ratio 14 Glucose 99 Calcium 10.3 H Total Bilirubin 1.60 H AST 20 ALT 16 Alkaline Phosphatase 73 Total Protein 8.0 Albumin 5.2 H Albumin/Globulin Ratio 1.9 Lipase 27 HCG, Qual Negative Urine Color Urine Turbidity Urine pH Ur Specific [place] Urine Protein Urine Glucose (UA) Urine Ketones Urine Blood Urine Nitrite Urine Bilirubin Urine Urobilinogen Ur Leukocyte Esterase Urine WBC (Auto) Urine RBC (Auto) U Epithel Cells (Auto) Urine Bacteria (Auto) Urine Mucus Urine Opiates Screen Urine Methadone Screen Ur Barbiturates Screen Ur Phencyclidine Scrn Ur Amphetamines Screen U Benzodiazepines Scrn Urine Cocaine Screen U Marijuana (THC) Screen Drugs of Abuse Note 09/07/21 09/07/21 09/07/21 21:37 Unknown Unknown WBC RBC Hgb Hct MCV MCH MCHC RDW Plt Count Lymph % (Auto) Norman % (Auto) Eos % (Auto) Baso % (Auto) Lymph # (Auto) Norman # (Auto) Eos # (Auto) Baso # (Auto) Seg Neutrophils % Seg Neutrophils # PT 14.0 INR 0.97 APTT 27.1 D-Dimer < 135 Sodium Potassium Chloride Carbon Dioxide Anion Gap BUN Creatinine Estimated GFR BUN/Creatinine Ratio Glucose Calcium Total Bilirubin AST ALT Alkaline Phosphatase Total Protein Albumin Albumin/Globulin Ratio Lipase HCG, Qual Urine Color Yellow Urine Turbidity Clear Urine pH 7.0 Ur Specific [place] 1.010 Urine Protein <30 mg dl Urine Glucose (UA) Negative Urine Ketones 40 Urine Blood Large A Urine Nitrite Negative Urine Bilirubin Negative Urine Urobilinogen 0.2 Ur Leukocyte Esterase Moderate Urine WBC (Auto) 22.0 H Urine RBC (Auto) 21.0 U Epithel Cells (Auto) 27.0 H Urine Bacteria (Auto) 1+ Urine Mucus 3+ Urine Opiates Screen Negative Urine Methadone Screen Negative Ur Barbiturates Screen Negative Ur Phencyclidine Scrn Negative Ur Amphetamines Screen Negative U Benzodiazepines Scrn Negative Urine Cocaine Screen Negative U Marijuana (THC) Screen Positive Drugs of Abuse Note Disclamer - EKG Data Rate: normal - EKG Data When compared to previous EKG there are: previous EKG unavailable Interpretation: other (Sinus arrhythmia no ST elevated [place] interpreted by ED attending) - Radiology Data Radiology results: report reviewed, image reviewed CT ABDOMEN AND PELVIS WITHOUT CONTRAST INDICATION / CLINICAL INFORMATION: rule out obstructive renal stone. TECHNIQUE: Axial CT images were obtained through the abdomen and pelvis without IV contrast. All CT scans at this location are performed using CT dose reduction for ALARA by means of automated exposure control. COMPARISON: None available. FINDINGS: LOWER CHEST: No significant abnormality of the imaged chest. LIVER: No focal lesion. No acute findings. GALLBLADDER / BILE DUCTS: Cholelithiasis without CT evidence of cholecystitis. Biliary ducts grossly unremarkable. SPLEEN: No significant abnormality. PANCREAS: No significant abnormality. ADRENALS: No significant abnormality. KIDNEYS/URETERS: No stones or hydronephrosis. No solid renal lesion. STOMACH / DUODENUM / SMALL BOWEL: The stomach, duodenum, and small bowel demonstrate no significant abnormality. No specific abnormality of the mesentery demonstrated. COLON: No significant abnormality. APPENDIX: No significant abnormality. PERITONEUM: No free air or free fluid are present within the abdomen or pelvis. LYMPH NODES: No significant adenopathy. AORTA / ARTERIES: No significant abnormality. IVC / VEINS: No significant abnormality. URINARY BLADDER: No significant abnormality. REPRODUCTIVE ORGANS: No significant abnormality. SKELETAL SYSTEM: No significant abnormality. ADDITIONAL ABDOMINAL/PELVIC FINDINGS: None. IMPRESSION: 1. No acute findings. No urolithiasis. Signer Name: Douglas Gooden II, MD Signed: 09/07/2021 11:55 PM Workstation Name: [id number] Transcribed By: CALIN Dictated By: DOUGLAS GOODEN II, MD Electronically Authenticated By: DOUGLAS GOODEN II, MD Signed Date/Time: 09/07/212354 DD/ 53 TD/TT: CHEST 2 VIEWS INDICATION / CLINICAL INFORMATION: chest pain. COMPARISON: None available. FINDINGS: SUPPORT DEVICES: None. HEART / MEDIASTINUM: Heart size and mediastinal contour appear within normal limits. LUNGS / PLEURA: No significant pulmonary or pleural abnormality. No pneumothorax. BONES: No significant osseous abnormality. ADDITIONAL FINDINGS: No significant additional findings. IMPRESSION: 1. No active cardiopulmonary disease. Signer Name: Douglas Gooden II, MD Signed: 09/07/2021 11:08 PM Workstation Name: [id number] Transcribed By: CALIN Dictated By: DOUGLAS GOODEN II, MD Electronically Authenticated By: DOUGLAS GOODEN II, MD Signed Date/Time: 09/07/212307 DD/ 06 TD/TT: - Medical Decision Making EKG sinus arrhythmia 4 PACs, normal heart rate no ST elevated [place] interpreted by ED attending. Chest x-ray is normal medical trace no past this, CT abdomen and pelvis is normal or renal stones, plan treat for UTI, DC to home, with prescriptions, follow-up with primary care doctor in 2 to 3 days. Return to emergency department symptoms worsen. Patient advised to stop THC abuse... Critical care attestation.: If time is entered above; I have spent that time in minutes in the direct care of this critically ill patient, excluding procedure time. ED Disposition Clinical Impression: UTI (urinary tract infection) Qualifiers: Urinary tract infection type: acute cystitis Hematuria presence: without hematuria Qualified Code(s): N30.00 - Acute cystitis without hematuria Disposition: HOME / SELF CARE / HOMELESS Is pt being admited?: No Does the pt Need Aspirin: No Condition: Stable Instructions: Abdominal Pain (ED), Urinary Tract Infection, Adult Additional Instructions: Take medications as prescribed, decrease THC intake, follow-up with your primary care doctor in 2 to 3 days. Return to the emergency department if symptoms worsen. Prescriptions: cephALEXin [Keflex] 500 mg PO BID 7 Days #14 cap RX: Ibuprofen [Motrin 800 MG tab] 800 mg PO Q8HR PRN #30 tablet PRN Reason: pain Referrals: NICHOLE FLORES MD [Staff Physician] - 3-5 Days Forms: Work/School Release Form(ED) Time of Disposition: 01:01
--- NOTE | 2021-09-07 23:12 | XRay Report ---
CHEST 2 VIEWS INDICATION / CLINICAL INFORMATION: chest pain. COMPARISON: None available. FINDINGS: SUPPORT DEVICES: None. HEART / MEDIASTINUM: Heart size and mediastinal contour appear within normal limits. LUNGS / PLEURA: No significant pulmonary or pleural abnormality. No pneumothorax. BONES: No significant osseous abnormality. ADDITIONAL FINDINGS: No significant additional findings. IMPRESSION: 1. No active cardiopulmonary disease. Signer Name: Darrin Gooden II, MD Signed: 09/07/2021 11:08 PM Workstation Name: [id number]
--- NOTE | 2021-09-07 23:59 | Cat Scan Report ---
CT ABDOMEN AND PELVIS WITHOUT CONTRAST INDICATION / CLINICAL INFORMATION: rule out obstructive renal stone. TECHNIQUE: Axial CT images were obtained through the abdomen and pelvis without IV contrast. All CT scans at this location are performed using CT dose reduction for ALARA by means of automated exposure control. COMPARISON: None available. FINDINGS: LOWER CHEST: No significant abnormality of the imaged chest. LIVER: No focal lesion. No acute findings. GALLBLADDER / BILE DUCTS: Cholelithiasis without CT evidence of cholecystitis. Biliary ducts grossly unremarkable. SPLEEN: No significant abnormality. PANCREAS: No significant abnormality. ADRENALS: No significant abnormality. KIDNEYS/URETERS: No stones or hydronephrosis. No solid renal lesion. STOMACH / DUODENUM / SMALL BOWEL: The stomach, duodenum, and small bowel demonstrate no significant a bnormality. No specific abnormality of the mesentery demonstrated. COLON: No significant abnormality. APPENDIX: No significant abnormality. PERITONEUM: No free air or free fluid are present within the abdomen or pelvis. LYMPH NODES: No significant adenopathy. AORTA / ARTERIES: No significant abnormality. IVC / VEINS: No significant abnormality. URINARY BLADDER: No significant abnormality. REPRODUCTIVE ORGANS: No significant abnormality. SKELETAL SYSTEM: No significant abnormality. ADDITIONAL ABDOMINAL/PELVIC FINDINGS: None. IMPRESSION: 1. No acute findings. No urolithiasis. Signer Name: Darrin Gooden II, MD Signed: 09/07/2021 11:55 PM Workstation Name: [id number]
--- NOTE | 2021-09-08 14:10 | Electrocardiograph Report ---
[facility] Test Date: 2021-09-07 Test Time: 20:25:40 Pat Name: LEANNA ALLAN Department: Room: Gender: F Slackman: EMILY : 1985 Requested By: KELLY WELCH Order Number: [id number] Reading MD: Nikolay Felton Measurements Intervals [place] Rate: 73 P: 62 MI: 121 QRS: 32 QRSD: 77 T: 40 QT: 418 QTc: 462 Interpretive Statements Sinus arrhythmia Probable left atrial enlargement No previous ECG available for comparison Electronically Signed On 09-08-2021 14:09:35 EDT by Nikolay Felton
== END 2021-09-08 01:05 | disposition home or self-care (01) ==
LOC: ED 12:37
DX: N39.0 Urinary tract infection, site not specified (principal); I10 Essential (primary) hypertension; Z79.899 Other long term (current) drug therapy
CPT/HCPCS: 36415; 71046; 74176; 80053; 80307; 81001; 83690; 84703; 85025; 85379; 85610; 85730; 87086; 93005; 96365; 96375; 99284; J0696; J1885; J2405; J7030